=== PATIENT | female | born 1980 | race Caucasian/White ===

== ENCOUNTER 2022-09-04 13:42 | Emergency (ER) | payer OTHER ==
--- NOTE | 2022-09-04 14:22 | ED ---
General Adult HPI - General Chief complaint: Recheck/Abnormal Lab/Rx Stated complaint: Lightheaded Time Seen by Provider: 09/04/22 14:01 Source: patient, EMS, RN notes reviewed Mode of arrival: EMS Limitations: no limitations - History of Present Illness Initial comments: Patient is a pleasant 42-year-old female presenting to the emergency department with concerns with lightheadedness. Patient did have a fall and head injury secondary to alcohol use at home approximately 2 weeks ago. Patient did go to rehab about 5 days ago. No injury since that time. Patient did have sutures placed that were already removed. Patient complains of still feeling somewhat lightheaded and foggy. Patient was sent here for evaluation. Patient states she was at the hospital in [place] and diagnosed with intercranial hemorrhage. Patient did see overnight and have repeat CT with similar findings. Reported to her is unchanged. Patient states she did leave AGAINST MEDICAL ADVICE following the second CT. Patient does not believe her symptoms have significantly worsened however still continue. - Related Data Home Medications Medication Instructions Recorded Confirmed Acetaminophen [Tylenol] 650 mg PO Q4H PRN MDD 4 doses 09/04/22 09/04/22 DULoxetine HCL [Cymbalta] 30 mg PO BID 09/04/22 09/04/22 Folic Acid 1 mg PO DAILY 09/04/22 09/04/22 Gabapentin [Neurontin] 600 mg PO TID 09/04/22 09/04/22 Gentamicin Sulfate [Gentamicin 1 drop LEFT EYE Q6H 09/04/22 09/04/22 Sulfate 0.3% Ophth Soln] Ibuprofen [Motrin Ib] 600 mg PO Q6H PRN 09/04/22 09/04/22 Magnesium Oxide [Mag-Ox] 400 mg PO BID 09/04/22 09/04/22 Mirtazapine [Remeron] 30 mg PO HS 09/04/22 09/04/22 NIFEdipine XL [Procardia Xl] 30 mg PO DAILY 09/04/22 09/04/22 Thiamine [Vitamin B-1] 100 mg PO DAILY 09/04/22 09/04/22 busPIRone HCl [Buspar] 10 mg PO TID 09/04/22 09/04/22 cloNIDine HCL [Catapres] 0.1 - 0.3 mg PO Q4H PRN 06/19/23 06/19/23 ondansetron HCL [Zofran] 8 mg PO Q6H PRN 09/04/22 09/04/22 Allergies Allergy/AdvReac Type Severity Reaction Status Date / Time No Known Allergies Allergy Verified 09/04/22 16:19 Review of Systems ROS Statement: Those systems with pertinent positive or pertinent negative responses have been documented in the HPI. ROS Other: All systems not noted in ROS Statement are negative. Constitutional: Denies: fever Eyes: Denies: eye pain ENT: Denies: ear pain Respiratory: Denies: cough Cardiovascular: Denies: chest pain Endocrine: Denies: fatigue Gastrointestinal: Denies: abdominal pain Genitourinary: Denies: dysuria Musculoskeletal: Denies: back pain Skin: Denies: rash Neurological: Reports: as per HPI. Denies: headache Past Medical History Past Medical History: Hypertension Additional Past Medical History / Comment(s): hx of Hepatitis C History of Any Multi-Drug Resistant Organisms: None Reported Additional Past Surgical History / Comment(s): L ankle Past Psychological History: Anxiety, Depression Smoking Status: Current every day smoker Past Alcohol Use History: Daily Past Drug Use History: Prescription Drug Abuse General Exam Limitations: no limitations General appearance: alert, in no apparent distress Head exam: Present: other (Healed laceration above the left eyebrow) Eye exam: Present: other (Left subconjunctival hemorrhage) ENT exam: Present: normal exam Neck exam: Present: normal inspection. Absent: tenderness Respiratory exam: Present: normal lung sounds bilaterally Cardiovascular Exam: Present: regular rate, normal rhythm GI/Abdominal exam: Present: soft. Absent: tenderness Extremities exam: Present: normal inspection Neurological exam: Present: alert, oriented X3, CN II-XII intact. Absent: motor sensory deficit Expanded Neurological exam: Present: protecting the airway Patient oriented to: Present: person, place, time Speech: Present: fluid speech Cranial nerves: EOM's Intact: Normal Sensory exam: Upper Extremity Light Touch: Normal, Lower Extremity Light Touch: Normal Motor strength exam: RUE: 5, LUE: 5, RLE: 5, LLE: 5 Eye Response: (4) open spontaneously Motor Response: (6) obeys commands Verbal Response: (5) oriented Psychiatric exam: Present: normal affect, normal mood Skin exam: Present: normal color Course Vital Signs 09/04/22 13:44 Temperature 99.1 F Pulse Rate 73 Respiratory 17 Rate Blood Pressure 124/85 O2 Sat by Pulse 98 Oximetry - Reevaluation(s) Reevaluation #1: 09/04/22 16:28 Potential transfer has been delayed pending results from [facility] in [place]. There was CT report that was sent to us from 08/25 with right parafalcine 1.0 cm subdural. Report was reviewed by myself. 09/04/22 16:50 I did speak with Dr. pedro at [facility] who confirmed previous CT results. She did feel distance was too far secondary to subdural hematoma larger than previous and does recommend closer facility. Did speak with Vikash with transfer team from [facility]. She did discuss with Dr. Ybarra who does recommend transfer. Patient reevaluated and updated. EKG Findings - EKG Results: EKG: interpreted by MICHAEL, sinus rhythm, normal axis, normal QRS, normal ST/T Medical Decision Making - Medical Decision Making Was pt. sent in by a medical professional or institution (, PA, ANNUAL GIVING MANAGER, urgent care, hospital, or detention...) When possible be specific @ -Patient was sent from [facility] facility Did you speak to anyone other than the patient for history (EMS, parent, family, police, friend...)? What history was obtained from this source @ -No Did you review nursing and triage notes (agree or disagree)? Why? @ -I reviewed and agree with nursing and triage notes Were old charts reviewed (outside hosp., previous admission, EMS record, old EKG, old radiological studies, urgent care reports/EKG's, detention records)? Report findings @ -I did review previous computed tomography scan from [facility] as well as transfer papers from [facility] Differential Diagnosis (chest pain, altered mental status, abdominal pain women, abdominal pain men, vaginal bleeding, weakness, fever, dyspnea, syncope, headache, dizziness, GI bleed, back pain, seizure, CVA, palpatations, mental health)? @ -Differential Altered Mental Status: Hypoglycemia, DKA, hypercapnia, ETOH, overdose, CO poisoning, trauma, myxedema coma, HTN encephalopathy, infection, encephalitis, psychosis, intercranial hemorrhage, hepatic encephalopathy, meningitis, CVA, this is not meant to be an all-inclusive list EKG interpreted by me (3pts min.). @ -As above X-rays interpreted by me (1pt min.). @ -None done CT interpreted by me (1pt min.). @ -CT brain does show posterior interhemispheric subdural U/S interpreted by me (1pt. min.). @ -None done What testing was considered but not performed or refused? (CT, X-rays, U/S, labs)? Why? @ -None What meds were considered but not given or refused? Why? @ -None Did you discuss the management of the patient with other professionals (professionals i.e. DrMoises, PA, ANNUAL GIVING MANAGER, lab, RT, psych nurse, manager social, rehabilitation caseworker, teacher, medical laboratory technical officer, assistant case manager)? Give summary @ -I did speak with Dr. Pedro at [facility] who recommended closer facility. Also spoke with vikash at [facility] who will accept for Dr. Tee Was smoking cessation discussed for >3mins.? @ -No Was critical care preformed (if so, how long)? @ -31 minutes critical care time Were there social determinants of health that impacted care today? How? (Homelessness, low income, unemployed, alcoholism, drug addiction, transportation, low edu. Level, literacy, decrease access to med. care, intermediate, rehab)? @ -No Was there de-escalation of care discussed even if they declined (Discuss DNR or withdrawal of care, Hospice)? DNR status @ -No What co-morbidities impacted this encounter? (DM, HTN, Smoking, COPD, CAD, Cancer, CVA, ARF, Chemo, Hep., AIDS, mental health diagnosis, sleep apnea, morbid obesity)? @ -None Was patient admitted / discharged? Hospital course, mention meds given and route, prescriptions, significant lab abnormalities, going to OR and other pertinent info. @ -Subdural hematoma appears larger than previous CTs at different facility. Patient will be transferred for neurosurgery patient reevaluated. Patient updated Undiagnosed new problem with uncertain prognosis? @ -No Drug Therapy requiring intensive monitoring for toxicity (Heparin, Nitro, Insulin, Cardizem)? @ -No Were any procedures done? @ -No Diagnosis/symptom? @ -Subdural hematoma Acute, or Chronic, or Acute on Chronic? @ -Acute Uncomplicated (without systemic symptoms) or Complicated (systemic symptoms)? @ -default Side effects of treatment? @ -No Exacerbation, Progression, or Severe Exacerbation? @ -No Poses a threat to life or bodily function? How? (Chest pain, USA, NH, pneumonia, PE, COPD, DKA, ARF, appy, cholecystitis, CVA, Diverticulitis, Homicidal, Barrera icidal, threat to staff... and all critical care pts) @ -Potential threat to brain function and life - Lab Data Result diagrams: 09/04/22 16:03 09/04/22 16:03 Lab Results 09/04/22 09/04/22 09/04/22 Range/Units 16:03 16:03 16:03 WBC 4.5 (3.8-10.6) k/uL RBC 3.38 L (3.80-5.40) m/uL Hgb 11.4 (11.4-16.0) gm/dL Hct 33.7 L (34.0-46.0) % MCV 99.7 (80.0-100.0) fL MCH 33.6 (25.0-35.0) pg MCHC 33.7 (31.0-37.0) g/dL RDW 18.0 H (11.5-15.5) % Plt Count 193 (150-450) k/uL MPV 9.0 Neutrophils % 59 % Lymphocytes % 22 % Monocytes % 11 % Eosinophils % 6 % Basophils % 1 % Neutrophils # 2.7 (1.3-7.7) k/uL Lymphocytes # 1.0 (1.0-4.8) k/uL Monocytes # 0.5 (0-1.0) k/uL Eosinophils # 0.3 (0-0.7) k/uL Basophils # 0.0 (0-0.2) k/uL Anisocytosis Slight Macrocytosis Slight PT 9.4 (9.0-12.0) sec INR 0.9 (<1.2) APTT 24.3 (22.0-30.0) sec Sodium 137 (137-145) mmol/L Potassium 3.9 (3.5-5.1) mmol/L Chloride 105 (98-107) mmol/L Carbon Dioxide 25 (22-30) mmol/L Anion Gap 7 mmol/L BUN 10 (7-17) mg/dL Creatinine 0.46 L (0.52-1.04) mg/dL Est GFR (CKD-EPI)AfAm >90 (>60 ml/min/1.73 sqM) Est GFR (CKD-EPI)NonAf >90 (>60 ml/min/1.73 sqM) Glucose 103 H (74-99) mg/dL Calcium 8.7 (8.4-10.2) mg/dL Total Bilirubin 0.3 (0.2-1.3) mg/dL AST 22 (14-36) U/L ALT 12 (4-34) U/L Alkaline Phosphatase 61 (38-126) U/L Total Protein 6.4 (6.3-8.2) g/dL Albumin 3.6 (3.5-5.0) g/dL Critical Care Time Critical Care Time: Yes Total Critical Care Time: 31 Disposition Clinical Impression: Subdural hematoma Disposition: OTHER INSTITUTION NOT DEFINED Is patient prescribed a controlled substance at d/c from ED?: No Referrals: None,Stated [Primary Care Provider] - 1-2 days Time of Disposition: 16:56 - Out of Hospital Transfer - Req. Specs Out of Hospital Transfer - Requested Specifics: Other Emergency Center
--- NOTE | 2022-09-04 14:51 | CT ---
EXAMINATION TYPE: CT brain wo con DATE OF EXAM: 09/04/2022 COMPARISON: None HISTORY: Fall x2 weeks ago, left eye contusion. CT DLP: 1202.[address] of the brain was performed. The ventricles, basal cisterns and sulci overlying the cerebral convexities demonstrate a normal appe arance. There is elongated hyperdensity noted adjacent to the posterior interhemispheric fissure measuring ap proximately 1.9 cm in length by 6 mm in width adjacent to the right occipital lobe.. This felt to ref lect a subdural hematoma or small parenchymal hemorrhage in this location. There is also asymmetric h yperdensity involving the right tentorium cerebelli which may reflect additional subdural hemorrhage. No mass effects are seen. No evidence of midline shift. No additional areas of hemorrhage seen with certainty at this time. Osseous calvarium is intact. If symptoms persist consider MRI as clinically warranted. IMPRESSION: 1. Findings felt to reflect subdural hemorrhage posterior interhemispheric fissure with possible kristin cent contusive hemorrhage with size given above. There is also asymmetric thickening of the right ten torium cerebelli which may reflect additional subdural hematoma.
[2022-09-04 16:16] LABS: Anisocytosis Slight; Basophils % (A) 1 %; Eosinophils # (A) 0.3 k/uL (0-0.7); Eosinophils % (A) 6 %; HCT 33.7 % (34.0-46.0); HGB 11.4 gm/dL (11.4-16.0); Lymphocytes % (A) 22 %; MCH 33.6 pg (25.0-35.0); MCHC 33.7 g/dL (31.0-37.0); MCV 99.7 fL (80.0-100.0); Macrocytosis Slight; Monocytes # (A) 0.5 k/uL (0-1.0); Monocytes % (A) 11 %; Neutrophils # (A) 2.7 k/uL (1.3-7.7); Neutrophils % (A) 59 %; Platelet Count 193 k/uL (150-450); RBC 3.38 m/uL (3.80-5.40); WBC 4.5 k/uL (3.8-10.6)
[2022-09-04 16:27] LABS: INR 0.9 (<1.2); Partial Thromboplastin Time 24.3 sec (22.0-30.0); Prothrombin Time 9.4 sec (9.0-12.0)
[2022-09-04 16:30] LABS: ALT 12 U/L (4-34); AST 22 U/L (14-36); African American GFR (CKD) >90 (>60 ml/min/1.73 sqM); Albumin 3.6 g/dL (3.5-5.0); Alkaline Phosphatase 61 U/L (38-126); Anion Gap 7 mmol/L; Blood Urea Nitrogen 10 mg/dL (7-17); Calcium 8.7 mg/dL (8.4-10.2); Carbon Dioxide 25 mmol/L (22-30); Chloride 105 mmol/L (98-107); Glucose 103 mg/dL (74-99); Non-African American GFR(CKD) >90 (>60 ml/min/1.73 sqM); Potassium 3.9 mmol/L (3.5-5.1); Sodium 137 mmol/L (137-145); Total Bilirubin 0.3 mg/dL (0.2-1.3); Total Protein 6.4 g/dL (6.3-8.2)
[2022-09-04] MEDS ORDERED: cloNIDine HCL 0.1 MG TAB PO STA (17:41)
[2022-09-04 18:11] VITALS: PULSE 100; RESP 18; TEMP 99
[2022-09-04 18:12] VITALS: BP 144/92
== END 2022-09-04 18:20 | disposition other institution (70) ==
LOC: EC 13:42
DX: I62.00 Nontraumatic subdural hemorrhage, unspecified (principal); I10 Essential (primary) hypertension; F32.A Depression, unspecified; F41.9 Anxiety disorder, unspecified; F17.200 Nicotine dependence, unspecified, uncomplicated; Z79.899 Other long term (current) drug therapy
CPT/HCPCS: 36415; 70450; 80053; 85025; 85610; 85730; 93005; 99291